=== PATIENT | female | born 1960 | race Caucasian/White ===

== ENCOUNTER → 2017-07-24 | Outpatient (CLI) | payer BC | LOC: RAD 07:25 | PROVIDERS: ATTEND Nurse Practitioner Family | DX: Z12.31 Encounter for screening mammogram for malignant neoplasm of breast (principal) | CPT/HCPCS: 77067 ==

== ENCOUNTER → 2017-09-27 | Outpatient (CLI) | payer BC ==
--- NOTE | 2017-09-27 12:39 | Diagnostic Imaging Report ---
EXAMINATION: Ultrasound of the right breast. INDICATION: Abnormal mammogram. FINDINGS: The screening mammogram performed on 07/24/2017 noted a small 6 mm nodular density in the midportion of the right breast. The diagnostic mammogram performed earlier today indicated that this lesion had a smooth margin and was most likely a benign process. On this exam, there is a 5 x 6 mm rounded fairly well-circumscribed avascular hypoechoic lesion in the 5 o'clock position of the breast roughly 9 cm from the nipple. I do suspect that this corresponds to the finding on the mammogram. This does not have the appearance of a simple cyst but this may represent a small cyst which has been complicated by infection and/or hemorrhage. This could also be a small solid lesion. At any rate, this lesion has a generally benign appearance. I would recommend that a short-term (6 month) followup mammogram and ultrasound be obtained for further study. IMPRESSION: There is a small hypoechoic nodule which would correspond to the finding on the mammogram. This lesion is most likely a benign process. Recommendations as above. ACR BI-RADS Category 3: Probably benign findings. Dictated by: Dictated on workstation # [id number]
--- NOTE | 2017-09-27 13:11 | Diagnostic Imaging Report ---
EXAMINATION: Unilateral diagnostic right mammogram. INDICATION: Abnormal screening mammogram. The current study was also evaluated with a Computer Aided Detection (CAD) system. FINDINGS: The recent screening mammogram performed on 07/24/2017 noted a small benign-appearing nodular density in the mid portion of the right breast on the craniocaudad view only. On this study, that finding is again evident and appears to be located in the 6 o'clock position of the breast. The compression views of this area suggest that this density is most likely a benign process. Even so, I would recommend that ultrasound be performed for further study. IMPRESSION: There is a benign-appearing nodular density in the 6 o'clock position of the right breast. Ultrasound would be recommended to better characterize this finding. ACR BI-RADS Category 0: Incomplete. (Needs additional imaging evaluation). Result letter will be mailed to the patient. Note: At least 10% of breast cancer is not imaged by mammography. Dictated by: Dictated on workstation # [id number]
== END ==
LOC: RAD 08:38
PROVIDERS: ATTEND Nurse Practitioner Family
DX: N63.10 Unspecified lump in the right breast, unspecified quadrant (principal)

== ENCOUNTER → 2018-02-14 | Outpatient (CLI) | payer BC | LOC: CARD 09:37 | PROVIDERS: ATTEND Nurse Practitioner Family | DX: R01.1 Cardiac murmur, unspecified (principal); R79.89 Other specified abnormal findings of blood chemistry; I08.2 Rheumatic disorders of both aortic and tricuspid valves | CPT/HCPCS: 93306 ==

== ENCOUNTER → 2018-05-02 | Outpatient (CLI) | payer BC ==
--- NOTE | 2018-05-02 08:44 | Diagnostic Imaging Report ---
EXAMINATION: Ultrasound of the right breast. INDICATION: Followup nodule The previous right breast ultrasound exam performed on 09/27/2017 noted a small benign-appearing avascular hypoechoic nodule in the 5 o'clock position of the right breast approximately 9 CM from the nipple. That finding is again evident on this exam and no different in size or appearance. Consequently I do suspect that this is a benign process. I would recommend that this area be reevaluated by ultrasound when the patient has her annual bilateral screening mammogram in September of 2018. IMPRESSION: The small hypoechoic nodule seen previously appears stable and is most likely benign. Recommendations as above. ACR BI-RADS Category 3: Probably benign findings. Dictated by: Dictated on workstation # [id number]
== END ==
LOC: RAD 08:01
PROVIDERS: ATTEND Nurse Practitioner Family
DX: N63.13 Unspecified lump in the right breast, lower outer quadrant (principal)

== ENCOUNTER 2018-05-30 16:07 | Emergency (ER) | payer BC, OTHER ==
[~2018-05-30] VITALS: Ht 157.5 cm; Wt 68.0 kg
[2018-05-30] MEDS ORDERED: METF-397 (16:32)
[2018-05-30] MEDS ORDERED: ASPIRIN 81 MG CHEW (CHILDREN'S ASA) PO ONE (17:00)
[2018-05-30 17:08] LABS: BASOPHILS % (AUTO) 0 % (0-10); EOSINOPHILS # (AUTO) 0.5 10^3/uL (0.0-0.3); EOSINOPHILS % (AUTO) 5 % (0-10); HEMATOCRIT 39 % (35-52); HEMOGLOBIN 12.8 G/DL (11.5-16.0); LYMPHOCYTES # (AUTO) 2.9 X 10^3 (1.0-4.0); LYMPHOCYTES % (AUTO) 29 % (12-44); MEAN CORPUSCULAR HEMOGLOBIN 23 PG (25-34); MEAN CORPUSCULAR HGB CONC 33 G/DL (32-36); MEAN CORPUSCULAR VOLUME 69 FL (80-99); MEAN PLATELET VOLUME 10.9 FL (7.4-10.4); MONOCYTES % (AUTO) 10 % (0-12); NEUTROPHILS # (AUTO) 5.7 X 10^3 (1.8-7.8); NEUTROPHILS % (AUTO) 57 % (42-75); PLATELET COUNT 375 10^3/uL (130-400); RED BLOOD COUNT 5.65 10^6/uL (4.35-5.85); WHITE BLOOD COUNT 10.1 10^3/uL (4.3-11.0)
--- NOTE | 2018-05-30 17:08 | NUR ---
WHEN IN ROOM GIVING ASA PATIENT QUESTIONED WHY GETTING 3 BABY ASA EXPLAINED TO HER THIS WAS WHAT WE DO FOR CHEST PAIN. SINCE SHE ONLY TOOK 1 WILL GIVE 3 TO MAKE NORMAL DOSE.STATES YOU GOING TO MAKE ME BLEED TO EXPLAINED SHE WOULD NOT BLEED FROM 3 ASA. THAN ASKED HOW LONG SHE WOULD BE HERE INFORMED THAT SHE APX 2 HRS SHE STATES I CAN'T BE HERE THAT LONG.
[2018-05-30 17:21] LABS: ALANINE AMINOTRANSFERASE 101 U/L (0-55); ALBUMIN 4.8 GM/DL (3.2-4.5); ALKALINE PHOSPHATASE 97 U/L (40-136); BILIRUBIN,TOTAL 0.3 MG/DL (0.1-1.0); BUN/CREATININE RATIO 13; CALCIUM 9.6 MG/DL (8.5-10.1); CARBON DIOXIDE 25 MMOL/L (21-32); CHLORIDE 101 MMOL/L (98-107); CREATININE SERUM 0.77 MG/DL (0.60-1.30); GFR ESTIMATED > 60; GLUCOSE 103 MG/DL (70-105); MAGNESIUM 2.1 MG/DL (1.8-2.4); POTASSIUM 4.3 MMOL/L (3.6-5.0); SODIUM 137 MMOL/L (135-145); TOTAL PROTEIN 7.8 GM/DL (6.4-8.2)
[2018-05-30 17:27] LABS: MYOGLOBIN SERUM 21.4 NG/ML (10.0-92.0)
--- NOTE | 2018-05-30 17:31 | Diagnostic Imaging Report ---
Patient History: Chest tightness. Technique: Single frontal view of the chest. Comparison: CT from 05/28/2014. FINDINGS: The lung volumes are normal. No focal consolidation is seen. No large pleural effusion or pneumothorax is seen. The cardiomediastinal silhouette is normal in size and contour. No acute osseous abnormality is seen. IMPRESSION: No acute pulmonary abnormality seen. Dictated by: Dictated on workstation # [id number]
[2018-05-30 17:35] VITALS: BP 132/92
--- NOTE | 2018-05-30 17:58 | ED Chest Pain ---
General Chief Complaint: Chest Pain Stated Complaint: TIGHTNESS IN THE CHEST Nursing Triage Note: AMB TO ROOM REPORTS IN FEB WAS AT WORK SITTING AT DESK WHEN HAD CHEST TTIGHTNESS WAS SEEN BY FAMILY EKG DONE AT THAT TIME . REPORT IT HAPPENED AGAIN TODAY. APX 1130 WAS AT WORK ONSET OF CHEST TIGHTNESS AND FELT HOT LASTED APX 2MIN. NO PAIN ON ADMIT. Nursing Sepsis Screen: No Definite Risk Source: patient Exam Limitations: no limitations History of Present Illness Date Seen by Provider: May 30, 2018 Time Seen by Provider: 15:09 Initial Comments This 58-year-old woman presents to the emergency room with concerns about chest tightness she experienced this morning while at work. The pain happened somewhere around 11:00 while she was at work sitting at her desk. The chest pain felt like a tightness across the center of her chest as though her bra were extremely tight. She had associated diaphoresis. The episode lasted a few minutes and she has felt well since then. She reports having another episode in February similar to this one. She sought commercial counsel with her primary care office and was deferred to the ER. She denies any chest pain at this time. She has no history of cardiac disease. She had a stress test performed around 15 years ago which reportedly was negative. She does smoke. She has family history of heart disease in her father, but he was much older when he developed heart disease. Allergies and Home Medications Allergies Coded Allergies: acetaminophen (Verified Allergy, Severe, 05/28/14) hydrocodone (Verified Allergy, Severe, 05/28/14) Patient Home Medication List Home Medication List Reviewed: Yes Review of Systems Review of Systems Constitutional: see HPI, diaphoresis EENTM: No Symptoms Reported Respiratory: No Symptoms Reported Cardiovascular: See HPI, Chest Pain Gastrointestinal: No Symptoms Reported Genitourinary: No Symptoms Reported Musculoskeletal: no symptoms reported Skin: no symptoms reported Psychiatric/Neurological: No Symptoms Reported Endocrine: No Symptoms Reported Hematologic/Lymphatic: No Symptoms Reported Past Mxoppjy-Trpxcy-Mbxybr Hx Past Med/Social Hx: Reviewed Nursing Past Med/Soc Hx Patient Social History Alcohol Use: Occasionally Uses Recreational Drug Use: No Smoking Status: Current Everyday Smoker Recent Foreign Travel: No Contact w/Someone Who Travel: No Recent Infectious Disease Expo: No Seasonal Allergies Seasonal Allergies: No Past Medical History Surgeries: No Respiratory: No Cardiac: No Neurological: No : No AUTO APPRAISER History: Menopausal Genitourinary: No Gastrointestinal: No Musculoskeletal: No Endocrine: Yes Diabetes, Non-Insulin dep (Prediabetic) Cancer: No Psychosocial: No Integumentary: No Blood Disorders: No Family Medical History Reviewed and Corrections made Patient reports no known family medical history. CAD Over 55 Years Old Physical Exam Vital Signs Vital Signs - First Documented 05/30/18 16:13 Temp 96.4 Pulse 85 Resp 18 B/P (MAP) 157/101 (119) Pulse Ox 96 O2 Delivery Room Air Capillary Refill : Less Than 3 Seconds Height, Weight, BMI Height: 5'2.00" Weight: 150lbs. oz. 68.279626qa; BMI Method:Stated General Appearance: No Apparent Distress, WD/WN HEENT: PERRL/EOMI, Normal ENT Inspection, Pharynx Normal Respiratory: Lungs Clear, Normal Breath Sounds, No Accessory Muscle Use, No Respiratory Distress Cardiovascular: Regular Rate, Rhythm, No Edema, No Murmur, Normal Peripheral Pulses Gastrointestinal: Normal Bowel Sounds, Non Tender, Soft Extremity: Normal Capillary Refill, Normal Inspection, Non Tender, No Calf Tenderness Neurologic/Psychiatric: Alert, Oriented x3, No Motor/Sensory Deficits, Normal Mood/Affect, skin tanner II-XII Norm as Tested Skin: Normal Color, Warm/Dry Progress/Results/Core Measures Results/Orders Lab Results Laboratory Tests Test 05/30/18 16:54 Range/Units White Blood Count 10.1 4.3-11.0 10^3/uL Red Blood Count 5.65 4.35-5.85 10^6/uL Hemoglobin 12.8 11.5-16.0 G/DL Hematocrit 39 35-52 % Mean Corpuscular Volume 69 L 80-99 FL Mean Corpuscular Hemoglobin 23 L 25-34 PG Mean Corpuscular Hemoglobin Concent 33 32-36 G/DL Red Cell Distribution Width 16.0 H 10.0-14.5 % Platelet Count 375 130-400 10^3/uL Mean Platelet Volume 10.9 H 7.4-10.4 FL Neutrophils (%) (Auto) 57 42-75 % Lymphocytes (%) (Auto) 29 12-44 % Monocytes (%) (Auto) 10 0-12 % Eosinophils (%) (Auto) 5 0-10 % Basophils (%) (Auto) 0 0-10 % Neutrophils # (Auto) 5.7 1.8-7.8 X 10^3 Lymphocytes # (Auto) 2.9 1.0-4.0 X 10^3 Monocytes # (Auto) 1.0 0.0-1.0 X 10^3 Eosinophils # (Auto) 0.5 H 0.0-0.3 10^3/uL Basophils # (Auto) 0.0 0.0-0.1 10^3/uL Prothrombin Time 13.0 12.2-14.7 SEC INR Comment 1.0 0.8-1.4 Activated Partial Thromboplast Time 32 24-35 SEC Sodium Level 137 135-145 MMOL/L Potassium Level 4.3 3.6-5.0 MMOL/L Chloride Level 101 98-107 MMOL/L Carbon Dioxide Level 25 21-32 MMOL/L Anion Gap 11 5-14 MMOL/L Blood Urea Nitrogen 10 7-18 MG/DL Creatinine 0.77 0.60-1.30 MG/DL Estimat Glomerular Filtration Rate > 60 BUN/Creatinine Ratio 13 Glucose Level 103 70-105 MG/DL Calcium Level 9.6 8.5-10.1 MG/DL Corrected Calcium 8.5-10.1 MG/DL Magnesium Level 2.1 1.8-2.4 MG/DL Total Bilirubin 0.3 0.1-1.0 MG/DL Aspartate Amino Transf (AST/SGOT) 75 H 5-34 U/L Alanine Aminotransferase (ALT/SGPT) 101 H 0-55 U/L Alkaline Phosphatase 97 40-136 U/L Myoglobin 21.4 10.0-92.0 NG/ML Troponin I < 0.028 <0.028 NG/ML Total Protein 7.8 6.4-8.2 GM/DL Albumin 4.8 H 3.2-4.5 GM/DL My Orders Orders - ERLINDA WEBSTER MD Ekg Tracing (05/30/18 16:11) Cbc With Automated Diff (05/30/18 16:55) Magnesium (05/30/18 16:55) Chest 1 View, Ap/Pa Only (05/30/18 16:55) Cardiac Profile 1 (05/30/18 16:55) Comprehensive Metabolic Panel (05/30/18 16:55) Myoglobin Serum (05/30/18 16:55) Protime With Inr (05/30/18 16:55) Partial Thromboplastin Time (05/30/18 16:55) O2 (05/30/18 16:55) Monitor-Rhythm Ecg Trace Only (05/30/18 16:55) Aspirin Chewable Tablet (Baby Aspirin Ch (05/30/18 17:00) Saline Lock/Iv-Start (05/30/18 16:55) Medications Given in ED Vital Signs/I&O 05/30/18 05/30/18 05/30/18 16:13 17:35 18:00 Temp 96.4 Pulse 85 70 82 Resp 18 18 18 B/P (MAP) 157/101 (119) 132/92 (105) 129/77 (94) Pulse Ox 96 98 98 O2 Delivery Room Air Room Air Room Air Blood Pressure Mean: 105 Progress Progress Note : Progress Note Workup was unremarkable. Patient remained free of chest pain. Outpatient follow-up for further cardiac evaluation was recommended. I also recommended taking aspirin 81 mg daily. See discharge instructions for discussion. Initial ECG Impression Date: May 30, 2018 Initial ECG Impression Time: 15:19 Initial ECG Rate: 76 Initial ECG Rhythm: Normal Sinus Initial ECG Intervals: Normal Initial ECG Impression: Normal Comment Normal sinus rhythm with no ST elevation or depression. No abnormal intervals or axis deviation. Diagnostic Imaging Diagonstic Imaging: Xray Plain Films/CT/US/NM/MRI: chest Comments NAME: [facility]AM[facility] REC#: [id number] PT STATUS: REG ER : 1960 PHYSICIAN: ERLINDA WEBSTER MD ADMIT DATE: 05/30/18/ER Draft Date of Exam:05/30/18 CHEST 1 VIEW, AP/PA ONLY Patient History: Chest tightness. Technique: Single frontal view of the chest. Comparison: CT from 05/28/2014. FINDINGS: The lung volumes are normal. No focal consolidation is seen. No large pleural effusion or pneumothorax is seen. The cardiomediastinal silhouette is normal in size and contour. No acute osseous abnormality is seen. IMPRESSION: No acute pulmonary abnormality seen. Dictated on workstation # [id number] Dict: 05/30/18 1720 Trans: 05/30/18 1730 [id number] Interpreted by: SYLVAIN ESPINAL MD Departure Impression Primary Impression: Chest pain Qualified Codes: R07.9 - Chest pain, unspecified Disposition: 01 HOME, SELF-CARE Condition: Improved Departure-Patient Inst. Decision time for Depature: 17:56 Referrals: GARRETT HARDY DO (PCP/Family) Primary Care Physician Patient Instructions: Chest Pain (DC) Add. Discharge Instructions: Follow-up with your primary care provider soon as possible. Please call them tomorrow. Seek further cardiac evaluation with stress test, referral to a leasing coordinator, or other action deemed appropriate by your primary care provider. Return to care if you have worsening of symptoms or return of chest pain. Take aspirin 81 mg daily until otherwise instructed. Work toward quitting smoking. All discharge instructions reviewed with patient and/or family. Voiced understanding. Copy Copies To 1: GARRETT HARDY JOSHUA T MD May 30, 2018 17:58
[2018-05-30 18:00] VITALS: BP 129/77
== END 2018-05-30 18:05 | disposition home or self-care (01) ==
LOC: EDUNIT# 16:07 → ER 16:09
DX: R07.9 Chest pain, unspecified (principal); E11.9 Type 2 diabetes mellitus without complications; F17.200 Nicotine dependence, unspecified, uncomplicated; Z88.5 Allergy status to narcotic agent; Z88.8 Allergy status to other drugs, medicaments and biological substances; Z82.49 Family history of ischemic heart disease and other diseases of the circulatory system
CPT/HCPCS: 36415; 71045; 80053; 83735; 83874; 84484; 85025; 85610; 85730; 93041

== ENCOUNTER → 2018-07-30 | Outpatient (CLI) | payer OTHER ==
[~2018-07-30] VITALS: Ht 157.5 cm; Wt 72.6 kg
[~2018-07-30] MED LIST: CATHETER FLUSH 10 ML SYR IV PRN; METF-397
[2018-07-30 07:57] VITALS: BP 156/96
[2018-07-30 08:05] VITALS: BP 131/90
[2018-07-30 08:06] VITALS: BP 138/92
[2018-07-30 08:07] VITALS: BP 181/93
[2018-07-30 08:16] VITALS: BP 180/98
[2018-07-30 08:17] VITALS: BP 180/98
--- NOTE | 2018-08-01 05:01 | STRESS TEST ---
DATE OF SERVICE: 07/30/2018 RESTING AND POST EXERCISE TECHNETIUM-99M TETROFOSMIN SPECT CT IMAGING ORDERING PHYSICIAN: Cirilo Meier DO PRIMARY CARE PHYSICIAN: Cirilo Meier DO CLINICAL DIAGNOSIS: Chest pain. Baseline images were carried out after injection of 10.10 mCi of technetium-99m Tetrofosmin. This was followed by exercise on a treadmill under Dr. Meier's supervision and the electrocardiographic part of the stress test is reported separately by him. Review of images at rest and following stress does not indicate any distinct perfusion defects consistent with significant myocardial ischemia or infarction. Gated images show normal global left ventricular systolic function with normal regional wall motion. Left ventricular ejection fraction is calculated to be 70%. CONCLUSIONS: 1. No evidence of significant myocardial ischemia or infarction on this study. 2. Normal regional wall motion. 3. Normal global left ventricular systolic function with a calculated ejection fraction of 70%. Job ID: [id number] DocumentID: [id number] Dictated Date: 07/31/2018 23:40:48 Carbonating Stone Cleaner Date: 08/01/2018 05:00:21 Dictated By: FARIBA VENTURA MD, MA, FACP, FACC,
== END ==
LOC: CARD 06:49
PROVIDERS: ATTEND Internal Medicine
DX: R07.9 Chest pain, unspecified (principal)
CPT/HCPCS: 78452; 93017